=== PATIENT | female | born 1990 | race Caucasian/White ===

== ENCOUNTER 2020-02-07 10:37 | Emergency (ER) | payer MEDICARE, MEDICAID ==
[~2020-02-07] VITALS: Ht 167.6 cm; Wt 90.0 kg
[2020-02-07 10:39] VITALS: BP 184/116
== END 2020-02-07 11:27 | disposition home or self-care (01) ==
LOC: ER 10:37
DX: J06.9 Acute upper respiratory infection, unspecified (principal); Z20.828 Contact with and (suspected) exposure to other viral communicable diseases; F32.9 Major depressive disorder, single episode, unspecified; Z88.2 Allergy status to sulfonamides
CPT/HCPCS: 99281

== ENCOUNTER 2021-09-28 10:22 | Emergency (ER) | payer MEDICARE, MEDICAID ==
[~2021-09-28] VITALS: Ht 162.6 cm; Wt 96.8 kg
[2021-09-28 10:31] VITALS: BP 148/96
== END 2021-09-28 11:30 | disposition home or self-care (01) ==
LOC: ER 10:22
DX: M79.645 Pain in left finger(s) (principal); F32.9 Major depressive disorder, single episode, unspecified; Z56.0 Unemployment, unspecified; Z88.2 Allergy status to sulfonamides
CPT/HCPCS: 99282